=== PATIENT | male | born 1950 | race Caucasian/White ===

== ENCOUNTER 2023-05-18 10:54 | Emergency (ER) | payer MEDICARE, SELFPAY ==
[2023-05-18 11:19] VITALS: BP 175/86; PULSE 83; RESP 17; TEMP 36.1; O2SAT 97; BMI 28.1
--- NOTE | 2023-05-18 11:19 | ED.LOWEXIN ---
HPI - Extremity Injury (Lower) General Chief Complaint: Extremity Problem Stated Complaint: r leg swelling sent by Urgent Care Time Seen by Provider: 05/18/23 11:33 Source: patient Mode of arrival: ambulatory Limitations: no limitations History of Present Illness HPI Narrative: 72 yo male w/ history of gout, HLD, peripheral neuropathy, macular degernation here with right lower leg swelling x 1 week described as aching pain. Started in ankle progressed to foot. Yesterday went to [facility] for outpatient and had negative x-rays. Pain improved with movement, worsened at rest. No injury or trauma. No numbness, tingling, weakness. No fevers, chills. Drinks beers daily Has PRN indomethacin for gout which he has tried but no better Related Data Previous Rx's Medication Instructions Recorded doxycycline monohydrate 100 mg 100 mg PO BID #20 caps 05/18/23 capsule prednisone 20 mg tablet 40 mg PO DAILY #10 tabs 05/18/23 Allergies Allergy/AdvReac Type Severity Reaction Status Date / Time No Known Allergies Allergy Verified 05/18/23 11:25 Review of Systems Review of Systems: Yes all other systems are reviewed and are negative Constitutional: Constitutional: Reports no additional constitutional complaints, Denies body ache(s), Denies chills, Denies fever(s), Denies headache(s) and Denies weakness Eyes: Eyes: Reports no additional eye complaints and Denies change in vision ENT: Reports system reviewed and no additional complaints, except as documented, Denies dizziness, Denies headache(s), Denies nasal congestion, Denies nasal discharge and Denies neck pain Cardiovascular: Cardiovascular: Reports no additional cardiovascular complaints, Denies chest pain, Denies leg edema and Denies dyspnea Respiratory: Respiratory: Reports no additional respiratory complaints, Denies cough and Denies dyspnea Gastrointestinal: Gastrointestinal: Reports no additional gastrointestinal complaints, Denies abdominal pain, Denies diarrhea, Denies nausea and Denies vomiting Genitourinary: Genitourinary: Denies urinary incontinence Musculoskeletal: Musculoskeletal: Reports no additional musculoskeletal complaints, Denies back pain, Reports arthralgias, Reports joint swelling, Denies limited range of motion, Denies neck pain, Denies numbness and Denies tingling Integumentary/Breasts: Skin/Breast: Reports system reviewed and no additional complaints, except as docu and Denies rash Neurologic: Reports system reviewed and no additional complaints, except as documented, Denies Abnormal speech present, Denies dizziness, Denies headache(s), Denies numbness, Denies tingling and Denies weakness PMFSH Past Medical History Attestation statement: The following information was validated with the patient. Source: old records reviewed and nursing notes reviewed Social History Social History Alcohol intake: never Smoked in Last 30 Days: No Use of substances other than those prescribed or required for medical reasons: No Advance Directives: No Advance Directives Information Provided: Yes Physical Exam Vital Signs: Vital Signs: Last Vital Signs Temp 98.2 F 05/18/23 13:49 Pulse 76 05/18/23 13:49 Resp 18 05/18/23 13:49 BP 155/83 H 05/18/23 13:49 Pulse Ox 99 05/18/23 13:49 O2 Del Method Room Air 05/18/23 13:49 BMI result Body Mass Index 28.1 Const: General: cooperative, healthy appearing, comfortable and no acute distress Orientation/consciousness: patient oriented x3 Limitations: no limitations HEENT: Head: Yes normal to inspection Ears: hearing grossly normal bilaterally General nose exam: Normal external nose present Face and sinus: Yes normal facial exam Mouth: Normal oral and palatal mucosa present Throat: Yes posterior oropharynx normal Eyes: General: appearance normal, both eyes and all related structures Pupils: Equal, round and reactive pupils present Neck: Neck: Yes normal visual inspection Chest: Chest palpation & inspection: normal inspection of the chest Resp: Effort & Inspection: normal respiratory effort Auscultation: clear to auscultation bilaterally Cardio: Rate: regular rate Rhythm: regular rhythm Peripheral pulses: Peripheral pulses 2+ throughout GI: Inspection: Yes normal to inspection Palpation (GI): Soft to palpation and nontender Auscultation: normal bowel sounds Back/Spine/Pelvis: Thoracic/Lumbar Spine: thoracic and lumbar spine normal to inspection Skin: General skin exam: no rashes or lesions noted Neuro: General: patient oriented x3, no focal motor deficits and normal sensation to monofilament Cranial nerves: Yes Equal, round and reactive pupils present Cognition (Neuro): normal cognition Speech: No Abnormal speech present Gait exam (Neuro): Normal gait present Motor exam (neuro): 5/5 motor strength present throughout Extrem: Other: +swelling over lateral mallelous which is is non pitting w/ warmth and pain on palpation. On exam there is swelling over dorsal foot/medial not circumferential. Pain with inversion/eversion Flexion/extension normal 2+PT/DP Sensation normal No open wounds noted General: Yes normal to inspection, Yes capillary refill normal, Yes no pedal edema and Yes no calf tenderness Course Course Course Narrative: RME: 72yo M w/PMHx macular degeneration, gout, c/o atraumatic right leg swelling x1 week w/ pain to lateral ankle. Had outpatient ankle XRs yesterday at [place] [facility] which was WNL. Admits started taking gout meds a few days ago w/o relief, admits this feels different than prior attacks. denies taking AC or SOB +RLE pitting edema, +lateral mal ttp, NV intact. no warmth Full HPI, ROS and PE to be performed by primary ED provider. Reevaluation(s) Reevaluation #1: Labs show mild leukocytosis, elevated inflammatory markers. US negative for DVT. Consider mild cellulitis and or tick related arthralgia so patient will be started on doxycycline while tick panel is pending. Also consider gout flare despite taking indomethacin so patient will be given a prednisone course. Reviewed worrisome signs and symptoms with the patient and when to seek additional care. Comfortable plan for discharge home. Medical Decision Making Medical Decision Making [facility] Narrative: 72 yo male here with complaints of right ankle/foot swelling, pain, warmth and erythema x 1 week with no known injury or trauma. History of gout and daily alcohol use, taking indomethacin with no relief. Has negative outpatient x-rays yesterday (Patient pulled up on his phone in the room-no bony abnormality seen on foot/ankle, no joint effusion). On exam patient with swelling, erythema, warmth and TTP over right lateral ankle, dorsal/medial foot with intact ROM. CMS intact Had US ordered from triage to r/o DVT Consider gout flare vs cellulitis. Will check labs including inflammatory markers. Low concern for septic joint with FROM. Low concern for compartment syndrome with pain well controlled, no reports of paresthesias. Low concern for nec fasc with slow progression, patient non toxic appearing. Of note, patient reports 1 month ago he had a tick bite. It was on his buttocks. He believes it was only in place overnight. Denies any associated rash. Will add tick panel. Differential Diagnosis Differential Diagnoses: The differential diagnosis associated with the presentation includes cellulitis, gout, DVT, septic joint, compartment syndrome, necrotizing fascititis, lyme Lab Data MDM Lab Attestation statement: I reviewed the patient's lab results. Reviewed labs which show mild leukocytosis, elevated inflammatory markers 05/18/23 13:04 05/18/23 13:04 Labs: Lab Results 05/18/23 05/18/23 05/18/23 Range/Units 13:04 13:04 13:04 WBC 11.5 H (4.8-10.8) X10*3/uL RBC 4.82 (4.60-5.80) X10*6/uL Hgb 14.8 (14.0-18.0) g/dl Hct 44.8 (42.0-52.0) % MCV 92.9 (80.0-98.0) fL MCH 30.7 (27.0-33.0) pg MCHC 33.0 (31.0-36.0) g/dl RDW 13.0 (11.0-16.0) % Plt Count 220 (160-400) X10*3/uL MPV 9.6 (9.4-12.4) fL Immature Gran % (Auto) 0.3 (0.0-0.4) % Neut % (Auto) 72.3 (45-73) % Lymph % (Auto) 15.6 L (20-40) % [place] % (Auto) 10.5 (2-11) % Eos % (Auto) 1.0 (0-4) % Baso % (Auto) 0.3 (0-2) % Lymph # (Auto) 1.8 (1.2-4.9) X10*3/uL [place] # (Auto) 1.2 (0.1-1.2) X10*3/uL Eos # (Auto) 0.1 (0.0-0.4) X10*3/uL Baso # (Auto) 0.0 (0.0-0.2) X10*3/uL Abs Immat Gran (auto) 0.03 (0.00-0.03) X10*3/uL Absolute Neuts (auto) 8.3 (2.0-8.3) x10*3/uL Absolute Nucleated RBC 0.000 (0.0-0.012) X10*3/uL Nucleated RBC % (auto) 0.0 (0.0-0.2) /100WBC ESR 31 H (0-15) MM/HR Sodium 141 (135-145) mmol/L Potassium 4.5 (3.3-5.1) mmol/L Chloride 105 (96-108) mmol/L Carbon Dioxide 22 (22-29) mmol/L Anion Gap 19 (12-20) BUN 17 H (9-16) mg/dL Creatinine 1.05 (0.5-1.4) mg/dL Estim Creat Clear Calc 75.6 Estimated GFR > 60 Random Glucose 112 (60-115) mg/dL Calcium 10.6 H (8.4-10.2) mg/dL C-Reactive Protein 2.71 H (< or = 0.50) mg/dL Independent Interpretation I performed an independent interpretation of an: Ultrasound Interpretation: I independently reviewed ultrasound and agree with radiologist report Radiology Impression Discussion of test interpretation with radiology: I have reviewed the radiologist's reading. Radiologist Impression: [place] [id number] Ultrasound Report Signed Patient: Qamar Moise MR#: [id number] : 1950 Acct:[id number] Age/Sex: 72 / M ADM Date: 05/18/23 Loc: .ED Attending Dr: Ordering Physician: Faby Mckeon Date of Service: 05/18/23 Procedure(s): US venous duplex LE RT Accession Number(s): [id number] cc: Faby Mckeon~ EXAMINATION:? US VENOUS ULTRASOUND WITH DOPPLER LOWER EXTREMITY, RIGHT CLINICAL INFORMATION:? Right lower extremity edema and pain COMPARISON:? None available. TECHNIQUE: Ultrasound of the deep veins is performed from the hip to the calf with compression sonography and color and pulse Doppler assessment. Spectral analysis with color-flow imaging is performed. FINDINGS: There is normal venous compression and respiratory variation and augmented flow. The visualized common femoral vein, superficial femoral vein, profunda femoral vein, popliteal vein, and the trifurcation region shows no evidence of deep venous thrombosis. ? There is no significant popliteal fossa cyst. If the patient's symptoms persist, followup ultrasound in 5 days 7 days might be of value to exclude proximal propagation from a non-visualized calf vein. US/US venous duplex LE RT IMPRESSION: No DVT demonstrated in the right lower extremity. Independent Historian Clinical information obtained from an independent historian. History obtained from or confirmed by: Spouse Prescription Management I considered prescription management with: Pain Medication and Antibiotic D/t concern for cellulitis possible tick related arthrlagia will start patient on doxycycline Discussed pain control, patient feels NSAID and APAP is sufficient Discharge Plan Discharge Clinical Impression: Cellulitis Patient Disposition: Home, Self-Care Instructions: Cellulitis (ED) Additional Instructions: We did send testing for lyme, babesiosis, ehrlichia and anaplasmosis which are all from tick bites. These tests take up to 7 days for results. We will only call you if they are positive Elevate the leg Use heat or ice This may be from a tick related illness, soft tissue infection or even gout so we are treating you for all three. If your lyme test is positive you will need additional course of antibiotics fyi Take these medications with food. Use sunscreen Prescriptions: New doxycycline monohydrate 100 mg capsule 100 mg PO BID Qty: 20 0RF prednisone 20 mg tablet 40 mg PO DAILY Qty: 10 0RF Referrals: Physician,None [Primary Care Provider] - 1 week Interventions: ED Discharge Assessment Last Done: 05/18/23 14:33 Discharge Date/Time: 05/18/23 14:34
[2023-05-18 13:49] VITALS: BP 155/83; PULSE 76; RESP 18; TEMP 36.8; O2SAT 99
--- NOTE | 2023-05-18 13:59 | PC.NURSE ---
Patient presents with pain and swelling to the right lower extremity. Patient has a history of gout but states that this seems different from usual gout presentation. Patient states that the pain is worse when he stands up after laying down for a while but after walking the pain gets better. Patient has non-pitting edema noted to the extremity.
[2023-05-21 13:18] LABS: Lyme Abs Screen <0.90 index
[2023-05-26 11:24] LABS: Babesia IgG <1:64 titer (<1:64); Babesia IgM <1:20 titer (<1:20)
[2023-05-28 11:03] LABS: A. Phagocytophilum Ab IgM <1:20 (<1:20); E. Chaffeensis Ab IgG <1:64 (<1:64); E. Chaffeensis Ab IgM <1:20 (<1:20); Interpretation PAST INFECTION
== END 2023-05-18 14:34 | disposition home or self-care (01) ==
PROVIDERS: Nurse Practitioner Family; Emergency Provider Emergency Medicine
DX: L03.115 Cellulitis of right lower limb (principal); M79.661 Pain in right lower leg; R60.0 Localized edema; Z79.899 Other long term (current) drug therapy
CPT/HCPCS: 36415; 80048; 85025; 85652; 86140; 86617; 86618; 86666; 86753; 93971; 99284

== ENCOUNTER 2023-05-28 09:00 | Emergency (ER) | payer MEDICARE, SELFPAY ==
--- NOTE | ~2023-05-28 | XR_ITS ---
EXAMINATION: XR ankle RT 2V, XR foot RT 2V CLINICAL INFORMATION: Pain and swelling COMPARISON: None. TECHNIQUE: 3 views of the right foot. 2 additional views of the right ankle. FINDINGS: Right foot: No fracture or dislocation. Alignment is anatomic. 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 Joint spaces are otherwise maintained. The soft tissues appear unremarkable. Right ankle: No fracture or dislocation. The ankle mortise is congruent. Mild circumferential soft tissue swelling. No ankle joint effusion. XR/XR foot RT 2V IMPRESSION: No fracture or malalignment. Mild soft tissue swelling at the ankle.
--- NOTE | ~2023-05-28 | XR_ITS ---
EXAMINATION: XR ankle RT 2V, XR foot RT 2V CLINICAL INFORMATION: Pain and swelling COMPARISON: None. TECHNIQUE: 3 views of the right foot. 2 additional views of the right ankle. FINDINGS: Right foot: No fracture or dislocation. Alignment is anatomic. 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 Joint spaces are otherwise maintained. The soft tissues appear unremarkable. Right ankle: No fracture or dislocation. The ankle mortise is congruent. Mild circumferential soft tissue swelling. No ankle joint effusion. XR/XR ankle RT 2V IMPRESSION: No fracture or malalignment. Mild soft tissue swelling at the ankle.
[2023-05-28 09:04] VITALS: BP 150/87; PULSE 85; RESP 16; TEMP 36.3; O2SAT 98; BMI 27.1
--- NOTE | 2023-05-28 12:01 | ED.GENADULT ---
HPI - General Adult General Chief complaint: Extremity Problem Stated complaint: swollen ankle & foot Time Seen by Provider: 05/28/23 10:23 Source: patient Mode of arrival: ambulatory Limitations: no limitations History of Present Illness HPI narrative: 72 yold male with pmh of HTN presents to the Ed for one week of right ankle/foot swelling/pain. Patient denies any leg swelling, calf pain, chest pain or shortness of breath. Patient denies any recent trauma to right lower extremity. patient states left lower extremity normal. Patient presents taking doxycycline and prednisone. Patient was informed this may be mild cellulitis or gout exacerbation. Patient denies much erythema. Patient states ankle/foot same size since last visit. Related Data Previous Rx's Medication Instructions Recorded doxycycline monohydrate 100 mg 100 mg PO BID #20 caps 05/18/23 capsule prednisone 20 mg tablet 40 mg PO DAILY #10 tabs 05/18/23 colchicine 0.6 mg capsule 0.6 mg PO BID 5 days #10 caps 05/28/23 Allergies Allergy/AdvReac Type Severity Reaction Status Date / Time No Known Allergies Allergy Verified 05/18/23 11:25 Review of Systems Review of Systems: Right ankle/Swelling for 1 week. Yes all other systems are reviewed and are negative [facility] Social History Social History Alcohol intake: never Advance Directives: No Advance Directives Information Provided: Yes Physical Exam ED Vital Signs: Vital Signs - 24 hr 05/28/23 09:04 Temperature 97.4 F Pulse Rate 85 Respiratory Rate 16 Blood Pressure 150/87 H Pulse Oximetry 98 Oxygen Delivery Method Room Air BMI result Body Mass Index 27.1 Const General: cooperative, healthy appearing, comfortable, no acute distress, well developed, alert, awake and Physically active Orientation/consciousness: oriented to person, oriented to place, oriented to time and patient oriented x3 HENMT Head: Yes normal to inspection, Yes No palpable skull fracture present, Yes normocephalic, Yes atraumatic and No abrasion Eyes General: appearance normal, both eyes and all related structures Neck Neck: Yes normal visual inspection, Yes full ROM, Yes no lymphadenopathy, Yes no meningeal signs, Yes trachea midline, Yes supple, No anterior neck swelling and No tender Chest Chest palpation & inspection: normal inspection of the chest and normal palpation of entire chest wall Resp Effort & Inspection: normal respiratory effort and able to speak in complete sentences Auscultation: clear to auscultation bilaterally Cardio Jugular venous distension: no JVD Heart sounds: S1 normal heart sound present and S2 normal heart sound present GI Inspection: Yes normal to inspection and No abdominal wall ecchymosis Palpation (GI): Soft to palpation, not firm, nontender, no guarding and not rigid General: No CVA tenderness and Yes no CVA tenderness Back/Spine/Pelvis Back: no CVA tenderness, No CVA tenderness and No back tenderness Skin General skin exam: no rashes or lesions noted and elasticity normal Neuro General: oriented to person, oriented to place, oriented to time, patient oriented x3, gait normal, tone normal, moves all extremities, Normal light touch and pain sensation, no meningeal signs, no focal motor deficits, CN's II-XI intact bilaterally and normal sensation to monofilament Extrem Other: left lower extremity normal General: Yes normal to inspection and Yes full ROM Ankle/foot/toe images: 1. Swelling with pitting edema. Negative for any erythema or warmth. Negative for crepitus, ecchymosis, or deformity. Negative for leg swelling, calf pain, red streaks, palpable cord, or foot wounds. Negative for leg ankle wounds. Motor/ neuro/vascular exam intact of lower extremity Psych Appearance: grossly normal, well kempt and not disheveled Medical Decision Making Medical Decision Making MDM Narrative: 72 yold male with history of gout presents to the ED for 1 week of right ankle/ foot swelling with pitting edema. Negative for any hotness, coldness, erythema, crepitus, ecchymosis, red streaks, or wounds/ulcers. rest of extremities normal. Patient was seen here on the and had normal x-ray, labs, and negative ultrasound for DVT. Presently foot is not red to indicate cellulitis. Repeat x-rays negative for any osteomyelitis or fractures. No need for repeat ultrasound negative for calf pain, leg swelling. Patient states same presentation of right lower extremity an ultrasound was negative as per our ED notes on the . Not suspect compartment syndrome. Patient taking indomethacin and prednisone. Will add Colcihine Differential Diagnosis Differential Diagnoses: The differential diagnosis associated with the presentation includes ( Gout, cellulitis, DVT, heart failure, venous stasis, lymphedema) Admission/Observation Consideration of admission/observation: Escalation of care including admission/observation considered Independent Interpretation I performed an independent interpretation of an: Plain X-Ray Radiology Impression Discussion of test interpretation with radiology: I have reviewed the radiologist's reading. Prescription Management I considered prescription management with: Pain Medication Chronic Conditions Patient?s care impacted by: Hypertension Discharge Plan Discharge Clinical Impression: Lower extremity edema, Gout attack Patient Disposition: Home, Self-Care Instructions: Gout (ED), Edema (ED) Additional Instructions: please follow-up with your primary care provider. X-ray negative for signs of bone infection. He will be prescribed colchicine. return to ED for any fever, chills, leg swelling, red streaks, chest pain, shortness of breath, worsening pain, open wounds, ulcers, worsening ankle/foot pain /swelling, bluish black discoloration, leg swelling, calf pain or any other concerning symptoms. Prescriptions: New colchicine 0.6 mg capsule 0.6 mg PO BID 5 Days Qty: 10 0RF No Action doxycycline monohydrate 100 mg capsule 100 mg PO BID Qty: 20 0RF prednisone 20 mg tablet 40 mg PO DAILY Qty: 10 0RF Interventions: ED Discharge Assessment Last Done: 05/28/23 12:17 Discharge Date/Time: 05/28/23 12:17 Print Language: Nepali
== END 2023-05-28 12:17 | disposition home or self-care (01) ==
PROVIDERS: Emergency Provider Emergency Medicine
DX: R60.0 Localized edema (principal); M10.9 Gout, unspecified; M25.571 Pain in right ankle and joints of right foot
CPT/HCPCS: 73600; 73620; 99282; 99283